=== PATIENT | male | born 2005 | race African-American/Black ===

== ENCOUNTER 2024-08-03 16:07 | Emergency (ER) | payer MEDICAID, SELFPAY ==
--- NOTE | 2024-08-03 16:26 | XR_ITS ---
Examination: PA lateral chest 2 views Technique: Upright PA lateral chest 2 views Exam date and time: August 03, 2024 1638 hrs. Indications: Coughing wheezing congestion beginning 3 weeks ago. Findings: Normal heart size. Lungs are clear. The osseous structures are intact Impression: No pneumonia or pulmonary edema
--- NOTE | 2024-08-03 16:26 | PD.EDRME ---
Rapid Medical Screening Exam RME Arrival date/time: 08/03/24 16:07 18-year-old male presents to the emergency room today stating that he went to primary care doctor and they referred him to ER for an abnormal EKG patient reports has had a cough congestion and chest pressure therefore they did an EKG which was abnormal per the patient and they referred him to the ER for further evaluation Chief Complaint: Chest Pain
[2024-08-03 16:43] LABS: Basophils # (Auto) 0.1 Thou/mm3 (0.0-0.2); Basophils % (Auto) 1 % (0-2.5); Hemoglobin 13.9 g/dL (13.5-16.0); Immature Granulocytes % (Auto) 0 % (0-0); Lymphocytes # (Auto) 2.5 Thou/mm3 (1.0-5.0); Mean Corpuscular Volume 71 fL (80-100); Monocytes # (Auto) 0.6 Thou/mm3 (0.0-0.8); Nucleated Red Blood Cell % 0 /100 WBC (0)
[2024-08-03 16:58] LABS: Alanine Aminotransferase 38 U/L (10-49); Albumin, Serum 4.5 gm/dL (3.5-5.0); Albumin/Globulin Ratio 1.7 (1.2-2.2); Alkaline Phosphatase 108 U/L (46-116); Anion Gap 8 (7-16); Aspartate Amino Transferase 24 U/L (0-34); BUN/Creatinine Ratio 12 Ratio (12-20); Bilirubin,Total 0.5 mg/dL (0.3-1.2); Blood Urea Nitrogen 14 mg/dL (9-23); Calcium 9.2 mg/dL (8.3-10.6); Calcium (Corrected) 9.2 mg/dL (8.5-10.1); Carbon Dioxide 24.5 mMol/L (20.0-31.0); Chloride 108 mMol/L (98-107); Creatinine (Component) 1.2 mg/dL (0.6-1.3); Globulin 2.7 gm/dL (2.3-3.5); Glucose 91 mg/dL (74-106); Osmolality,Calculated 279 (275-295); Potassium 3.7 mMol/L (3.4-5.1); Sodium 140 mMol/L (136-145); Total Protein 7.2 gm/dL (5.7-8.2); Troponin I < 0.002 ng/mL (0.0-0.045); eGFR > 60 See Note
[2024-08-03 17:35] LABS: Eosinophils # (Auto) 0.7 Thou/mm3 (0.0-0.5); Eosinophils % (Auto) 8 % (0-10); Immature Granulocytes Auto 0.02 Thou/mm3 (0.00-0.00); Lymphocytes % (Auto) 29 % (10-50); Mean Corpuscular HGB Conc 32.3 g/dl (31.0-37.0); Mean Corpuscular Hemoglobin 22.9 pg (25.0-35.0); Monocytes % (Auto) 7 % (0-12); Neutrophils # (Auto) 4.9 Thou/mm3 (1.8-7.7); Neutrophils % (Auto) 56 % (37-80); Platelet Count 244 Thou/mm3 (140-440); RDW Standard Deviation 36.6 fL (35.1-43.9); Red Blood Count 6.06 Miln/mm3 (4.50-5.90); White Blood Count 8.8 Thou/mm3 (4.5-11.0)
--- NOTE | 2024-08-03 19:04 | EDNOTE_ITS ---
ED General RME/HPI General Chief complaint: Chest Pain Stated complaint: Abnormal EKG Time Seen by Provider: 08/03/24 18:55 Arrival date/time: 08/03/24 16:07 RME / HPI RME / HPI narrative: 18-year-old male presents to the emergency room today stating that he went to primary care doctor and they referred him to ER for an abnormal EKG patient reports has had a cough congestion and chest pressure therefore they did an EKG which was abnormal per the patient and they referred him to the ER for further evaluation patient has been having cough and congestion for the last 2 weeks. Denies any fever. Denies any other complaints. Related Data Previous Rx's ?Medication ?Instructions ?Recorded guaifenesin 1,200 mg tablet, 1,200 mg PO BID #14 tabs 08/03/24 extended release 12 hr (Mucinex) ibuprofen 800 mg tablet 800 mg PO Q8H PRN pain #30 t abs 08/03/24 Allergies Allergy/AdvReac Type Severity Reaction Status Date / Time No Known Allergies Allergy Verified 08/03/24 16:12 Review of Systems Review of Systems Narrative Review of Systems: Review of system reviewed and within normal limits except mentioned in HPI ED Exam Narrative Physical exam: VITAL SIGNS: Reviewed. GENERAL APPEARANCE: Alert and interactive, follows commands, no acute distress, HEAD AND FACE: Non-traumatic. ENT: PERRL, pink conjunctivitis, eyelid no trauma, Mucous membrane moist. NECK: Supple, nontender, no nuchal rigidity. CHEST: No tenderness, no crepitus, no paradoxical movement, no retractions. LUNGS: Clear, well ventilated, symmetric, no rales, no wheezing, no ronchi, no stridor, good breath sounds bilaterally. HEART: Regular rate, regular rhythm, no murmur, no gallops. ABDOMEN: Soft, positive bowel sounds, nondistended, no guarding, nontender, no rebound, no masses, RECTAL: Deferred. GENITAL: Deferred. NEUROLOGICAL: Gross motor function intact sensory function intact, Appropriate for age. MUSCULOSKELETAL: low back nontender, full range of motion. EXTREMITIES: Nontender, full range of motion. SKIN: Color pink, dry, no rash, no lacerations, no abrasions, no contusions. LYMPHATICS: Deferred. Course Quality Measures none Orders Category Date Time Status Bedside Influenza A&B Antigen Test NOW Care 08/03/24 16:26 Completed EKG (ED ONLY) *Do not use* NOW Care 08/03/24 16:26 Completed EKG (ED Only) Stat Exams 08/03/24 16:26 Ordered XR chest 2V Stat Exams 08/03/24 16:26 Completed CBC Stat Lab 08/03/24 16:35 Completed Comprehensive Metabolic Panel Stat Lab 08/03/24 16:35 Completed Troponin I Stat Lab 08/03/24 16:35 Completed MDM Patient data External records reviewed:: None Clinical information provided by:: patient and family Social determinants that could affect healthcare access:: none Patient has the following chronic illnesses:: None How is presenting disease/condition affected by chronic disease/condition?: no chronic disease Evaluation data The following diagnostics were reviewed and interpreted by me:: lab results, radiology exam(s) and EKG tracing(s) Lab and/or radiology exams considered but not ordered:: None Interpretation Summary: See results in MDM Medications Medications considered but not ordered:: None Medication administrations:: None Consultations Consultation(s) initiated? (list below): No Diagnosis Differential Diagnosis ED Complaint MDM: Cough, abnormal EKG, bronchitis, URI Most likely diagnosis given after review of the tests above:: URI Admission Indicated Admission indicated?: not indicated Explain why admission is indicated or not indicated:: Stable Admission Request Was there a request for admission?: No Disposition Plan Disposition Plan: Discharge Discharge Attestation Discharge Attestation: The patient and all family members were given an opportunity to ask questions and understood the discharge instructions. Discharge instructions specifically effects, indications for sooner follow up or return to the emergency department, and the expected course of current diagnosis. Patient condition: Stable Medical Decision Making MDM Narrative MDM Narrative: 18-year-old male presents to the emergency room today stating that he went to primary care doctor and they referred him to ER for an abnormal EKG patient reports has had a cough congestion and chest pressure therefore they did an EKG which was abnormal per the patient and they referred him to the ER for further evaluation patient has been having cough and congestion for the last 2 weeks. Denies any fever. Denies any other complaints. EKG showed sinus rhythm, ventricular rate of 67 bpm, TN interval 164 MS, no ST segment elevation or depression noted. Patient's workup today all came back unremarkable including normal troponin. I personally reviewed and interpreted the x-ray of this patient. There is no acute abnormalities found, no infiltrates no pneumothorax no hemothorax normal chest x-ray. Review of other structures was without significant abnormal findings also. I additionally reviewed the radiologist report and agree with the interpretation. Differential Diagnosis Differential Diagnosis: Cough, abnormal EKG, bronchitis, URI Lab Data 08/03/24 16:35 08/03/24 16:35 Labs: Lab Results 08/03/24 Range/Units 16:35 WBC 8.8 (4.5-11.0) Thou/mm3 RBC 6.06 H (4.50-5.90) Miln/mm3 Hgb 13.9 (13.5-16.0) g/dL Hct 43.0 (41.0-53.0) % MCV 71 L (80-100) fL MCH 22.9 L (25.0-35.0) pg MCHC 32.3 (31.0-37.0) g/dl RDW Std Deviation 36.6 (35.1-43.9) fL Plt Count 244 (140-440) Thou/mm3 Neut % (Auto) 56 (37-80) % Lymph % (Auto) 29 (10-50) % [place] % (Auto) 7 (0-12) % Eos % (Auto) 8 (0-10) % Baso % (Auto) 1 (0-2.5) % Neut # (Auto) 4.9 (1.8-7.7) Thou/mm3 Lymph # (Auto) 2.5 (1.0-5.0) Thou/mm3 [place] # (Auto) 0.6 (0.0-0.8) Thou/mm3 Eos # (Auto) 0.7 H (0.0-0.5) Thou/mm3 Baso # (Auto) 0.1 (0.0-0.2) Thou/mm3 Immature Gran # (Auto) 0.02 H (0.00-0.00) Thou/mm3 Absolute Nucleated RBC 0.00 (0.00-0.00) Thou/mm3 Immature Gran % 0 (0-0) % Nucleated RBC % 0 (0) /100 WBC Sodium 140 (136-145) mMol/L Potassium 3.7 (3.4-5.1) mMol/L Chloride 108 H (98-107) mMol/L Carbon Dioxide 24.5 (20.0-31.0) mMol/L Anion Gap 8 (7-16) BUN 14 (9-23) mg/dL Creatinine 1.2 (0.6-1.3) mg/dL Estim Creat Clear Calc Not Performed. eGFR > 60 (60 - ) See Note BUN/Creatinine Ratio 12 (12-20) Ratio Glucose 91 (74-106) mg/dL Calculated Osmolality 279 (275-295) Calcium 9.2 (8.3-10.6) mg/dL Corrected Calcium 9.2 (8.5-10.1) mg/dL Total Bilirubin 0.5 (0.3-1.2) mg/dL AST 24 (0-34) U/L ALT 38 (10-49) U/L Alkaline Phosphatase 108 (46-116) U/L Troponin I < 0.002 (0.0-0.045) ng/mL Total Protein 7.2 (5.7-8.2) gm/dL Albumin 4.5 (3.5-5.0) gm/dL Globulin 2.7 (2.3-3.5) gm/dL Albumin/Globulin Ratio 1.7 (1.2-2.2) Discharge Plan Plan Patient Disposition: HOME (Self Care) Disposition Comment: Stable Prescriptions/Referrals Prescriptions/Med Rec: New guaifenesin [Mucinex] 1,200 mg tablet extended release 12hr 1,200 mg PO BID Qty: 14 0RF ibuprofen 800 mg tablet 800 mg PO Q8H PRN (Reason: pain) Qty: 30 0RF Referrals: Reece Dimas MD [Primary Care Provider] - In 1 week Problem List Clinical Impression: URI (upper respiratory infection) Patient/Caregiver Discharge Instructions Discharge Activity: activity as tolerated Education Materials: ED URI, Viral, No Abx (Adult) Additional Instructions: Thank you for the opportunity for serving you today. You are stable for discharged . You are advised to: Follow-up with your PCP in 1 to 2 days Return to ED for worsening of symptoms Increase oral fluids Take medication as prescribed Print Language: Armenian Stand Alone Forms: Katie Award Info., Patient Portal Info Letter
[2024-08-03 19:40] VITALS: BP 146/83; PULSE 69; RESP 18; TEMP 37; O2SAT 97
[2024-08-03 20:05] VITALS: RESP 18
== END 2024-08-03 20:06 | disposition home or self-care (01) ==
PROVIDERS: Nurse Practitioner Primary Care; Emergency Provider Emergency Medicine; PCP Family Medicine
DX: J06.9 Acute upper respiratory infection, unspecified (principal)
CPT/HCPCS: 36415; 71046; 80053; 84484; 85025; 87400; 93005; 99283